=== PATIENT | female | born 1950 | race Caucasian/White ===

== ENCOUNTER → 2019-09-16 | Outpatient (CLI) | payer MEDICARE, OTHER ==
[~2019-09-16] MED LIST: CIPRO500 MG PO; COZAAR100 MG PO; CRESTOR10 MG PO; DIATRIZOATE MEGL/DIATRIZOA SOD 30 ML BTL PO ONE; DIAZEPAM5 MG PO; GABAPENTIN300 MG PO; GLIPIZIDE5 MG PO; IOPAMIDOL 370 MG/ML 200 ML INFUS..BTL INJ ONE; LORAZEPAM0.5 MG PO; METFORMIN HCL500 MG PO; NYSTATIN100000 UNI PO; PLAVIX75 MG PO; SODIUM CHLORIDE 0.9% 50ML 50 ML ONE; ULTRAM50 MG PO
[2019-09-16 16:31] LABS: BLOOD UREA NITROGEN 13 mg/dL (7-26); BUN/CREATININE RATIO 14 (6-25); CREATININE, SERUM 0.92 mg/dL (0.57-1.11); EST GLOMERULAR FILTRATION RATE > 60 ML/MIN (60-)
--- NOTE | 2019-09-16 17:22 | Diagnostic Imaging Report ---
CT of the abdomen and pelvis, with contrast. History: Abdominal pain. Comparison: Abdominal ultrasound from 03/31/2017. Technique: Multidetector CT scanning of the abdomen and pelvis was performed from the level of the lung bases to the inferior pubic rami after intravenous and oral administration of contrast. Coronal and sagittal multiplanar reformations were obtained. RADIATION DOSE: Total DLP: 362.74 mGy*cm Dose modulation, iterative reconstruction, and/or weight based adjustment of the mA/kV was utilized to reduce the radiation dose to as low as reasonably achievable. FINDINGS: The visualized lungs are unremarkable. The imaged portion of the heart demonstrates no significant abnormalities. The liver is normal in size but appears diffusely decreased in attenuation in comparison to the spleen which can be seen in the setting of fatty infiltration. No focal hepatic abnormality is identified. The gallbladder is unremarkable. There is no evidence for radiopaque stones, wall thickening, or pericholecystic fluid. There is no biliary ductal dilatation. Granulomas calcifications are noted within the spleen which is otherwise unremarkable. The stomach, pancreas, and bilateral adrenal glands are unremarkable. The kidneys are normal in size and location and enhance symmetrically. Areas of cortical scarring noted bilaterally. A 1.7 x 1.5 cm cyst is identified within the mid right kidney. Additional subcentimeter hypodensities are identified bilaterally which are too small to definitively characterize. Vascular calcifications are noted bilaterally. There is no evidence for hydronephrosis or obstructive uropathy. The ureters are normal in course and caliber. Streak artifact from left hip hardware limits evaluation of the pelvis. The urinary bladder appears grossly unremarkable. An intrauterine device is noted within the uterus which is otherwise unremarkable. No abnormal adnexal masses are identified. The abdominal aorta is normal in caliber with extensive after cirrhotic calcifications within its course and branch vessels. The IVC is grossly unremarkable. The visualized loops of small and large bowel demonstrate no evidence of obstruction or inflammation. The appendix is not definitively visualized and may be surgically absent. There is no evidence of inflammation within its expected location the right lower quadrant. There is no ascites or peritoneal free air. No abnormally enlarged lymph nodes are identified within the abdomen or pelvis. Partially visualized fixation hardware noted within the proximal left femur. The osseous structures otherwise demonstrate no evidence for acute fracture or destructive process. The extraperitoneal soft tissues are unremarkable. IMPRESSION: No acute abdominopelvic process identified to correlate with the patient's abdominal pain. CT findings suggestive of mild hepatic steatosis. Signed by: Dr. Stanislav Beaver MD on 09/16/2019 5:18 PM
== END ==
LOC: CT 15:17
PROVIDERS: ATTEND Family Medicine
DX: R10.32 Left lower quadrant pain (principal)
CPT/HCPCS: 36415; 74177; 82565; 84520; Q9967